=== PATIENT | female | born 1960 | race Caucasian/White ===

== ENCOUNTER 2020-01-25 18:37 | Emergency (ER) | payer BC, OTHER ==
--- NOTE | 2020-01-25 18:53 | PDOC ---
Rapid Medical Evaluation Chief Complaint: Edema Time Seen by Provider: 01/25/20 18:47 Medical Evaluation: Allergies Allergy/AdvReac Type Severity Reaction Status Date / Time No Known Allergies Allergy Verified 01/25/20 18:45 01/25/20 18:47 I have performed a brief in-person evaluation of this patient. The patient presents with a chief complaint of: persistent left lower leg swelling and redness around ankle x 4 months. pt is being treated in vein clinic for varicose veins and having treatment for the veins in vein clinic in the [place]. pt report she has seen vein doctor multiple times for complains and placed on 2 different Abx twice without improvement. pt report seeing vein doctor today and was told by the provider he doesn't know why left is has persistent swelling despite tx and duplex done last week showed no DVT. pt came here for second opinion to dx leg swelling with redness. Denies SOB Pertinent physical exam findings: 3+ pitting edema to left LE from ankle down to foot. diffused circumferential erythema to above left ankle. no open wounds I have ordered the following: CBC, PT/PTT The patient will proceed to the ED for further evaluation. Discharge Disposition - Diagnosis Edema of left lower leg due to peripheral venous insufficiency - Discharge Dispostion Condition at time of disposition: Stable - Referrals - Patient Instructions - Post Discharge Activity
[2020-01-25 18:55] VITALS: BP 129/70; PULSE 90; TEMP 98.8; BMI 25.8
--- NOTE | 2020-01-25 19:52 | PDOC ---
History of Present Illness - General Chief Complaint: Edema Stated Complaint: L/LEG SWELLING/PAIN Time Seen by Provider: 01/25/20 18:47 History Source: Patient Exam Limitations: No Limitations - History of Present Illness Initial Comments: 01/25/20 19:29 HISTORY OF PRESENT ILLNESS: 59-year-old woman with past medical history of varicose veins currently undergoing sclerotherapy presents emergency department for evaluation of left lower extremity swelling and pain worsening over the past week. Patient was seen and evaluated by her primary doctor and was started on an antibiotic. Patient does not remember the name of the antibiotic. Patient reports symptoms have not improved since the initiation of antibiotic therapy. Patient reports he had a negative ultrasound done at an outpatient clinic a week ago. No recent travel or sick contacts. PAST MEDICAL HISTORY: See HPI SURGICAL HISTORY: Denies ALLERGIES: No known drug allergies REVIEW OF SYSTEMS General/Constitutional: Denies fever or chills. Denies weakness, weight change. HEENT: Denies change in vision. Denies ear pain or discharge. Denies sore throat. Cardiovascular: Denies chest pain or shortness of breath. Respiratory: Denies cough, wheezing, or hemoptysis. Gastrointestinal: Denies nausea, vomiting, diarrhea or constipation. Denies rectal bleeding. Genitourinary: Denies dysuria, frequency, or change in urination. Musculoskeletal: See HPI Skin and breasts: Denies rash or easy bruising. Neurologic: Denies headache, vertigo, loss of consciousness, or loss of sensation. Psychiatric: Denies depression or anxiety. Endocrine: Denies increased thirst. Denies abnormal weight change. Hematologic/Lymphatic: Denies anemia, easy bleeding, or history of blood clots. Allergic/Immunologic: Denies hives or skin allergy. Denies latex allergy. PHYSICAL EXAM General Appearance: Well-appearing, appropriately dressed. No apparent distress, no intoxication. Vascular Pulses: Dorsalis-Pedis (R): 2+, Dorsalis-Pedis (L): 2+ Musculoskeletal/Extremities: Normal inspection. FROM of all extremities, normal capillary refill. Pelvis Stable. No CVA tenderness. No tenderness to extremities, pedal edema, swelling, erythema or deformity. Circumferential erythema present to the left lower leg immediately proximal to the ankle. Pitting edema noted. Not warm to the touch. Hair is missing. Appearance consistent with venous stasis changes. Neurovascularly intact. Integumentary: Circumferential erythema present to the left lower leg immediately proximal to the ankle. Pitting edema noted. Not warm to the touch. Hair is missing. Appearance consistent with venous stasis changes. Past History - Medical History Allergies/Adverse Reactions: Allergies Allergy/AdvReac Type Severity Reaction Status Date / Time No Known Allergies Allergy Verified 01/25/20 18:45 Home Medications: Ambulatory Orders Clindamycin [Cleocin -] 450 mg PO Q8H #90 capsule 01/25/20 Mometasone Furoate 45 gm TP BID #1 tube 01/25/20 - Psycho-Social/Smoking History Smoking History: Never smoked - Substance Abuse Hx (Audit-C & DAST Scrn) How often the patient has a drink containing alcohol: Never Score: In Men: 4 or > Positive; In Women: 3 or > Positive: 0 Screen Result (Pos requires Nsg. Audit-10AR): Negative In the last yr the pt used illegal drug/Rx for NonMed reason: No Score: Yes response is considered Positive: 0 Screen Result (Positive result requires Nsg. DAST-10): Negative *Physical Exam - Vital Signs Last Vital Signs Temp Pulse Resp BP Pulse Ox 98.8 F 90 17 129/70 99 01/25/20 18:45 01/25/20 18:45 01/25/20 18:45 01/25/20 18:45 01/25/20 18:45 ED Treatment Course - LABORATORY CBC & Chemistry Diagram: 01/25/20 19:40 - RADIOLOGY Radiology Studies Ordered: Category Date Time Status DUPLEX VASCUL US-1 LEG [US] Stat Ultrasound 01/25/20 19:24 Ordered Medical Decision Making - Medical Decision Making 01/25/20 19:52 A/P: 59-year-old woman with pitting edema to left lower extremity for 1 week. Circumferential erythema with pitting edema present to the distal lower leg of the left side. Duplex Doppler of the left lower extremity Labs [facility] Reassess 01/25/20 21:35 Laboratory Tests 01/25/20 01/25/20 19:40 19:40 WBC 5.9 RBC 4.15 Hgb 11.9 Hct 35.8 MCV 86.2 MCH 28.7 MCHC 33.3 RDW 12.8 Plt Count 254 MPV 8.5 Absolute Neuts (auto) 3.6 Neutrophils % 60.7 Lymphocytes % 28.7 Monocytes % 7.9 Eosinophils % 2.1 Basophils % 0.6 Nucleated RBC % 0 PT with INR 11.90 INR 1.01 PTT (Actin FS) 27.8 Ultrasound is read by Dr. Conn: There is no evidence of deep vein thrombosis in the left lower extremity. No Schaefer's cyst is identified within the popliteal fossa. We will believe there is low likelihood of infectious etiology I will treat with clindamycin 450 mg 3 times daily for the next 10 days. Mometasone ointment to lower extremity twice a day. PMD follow-up I discussed the physical exam findings, ancillary test results and final diagnoses with the patient. I answered all of the patient's questions. The patient was satisfied with the care received and felt comfortable with the discharge plan and treatment plan. The patient will call their primary care physician within 24 hours to arrange follow-up and will return to the Emergency Department with any new, persistent or worsening symptoms. Portions of this note have been documented using voice recognition software. As a result, errors may occur in the project landscape architect process. Effort has been made to correct all grammatical and project landscape architect error, but some may have been missed which may produce sporadic inaccurate project landscape architect or nonsensical phrases. Discharge - Discharge Information Problems reviewed: Yes Clinical Impression/Diagnosis: Edema of left lower leg due to peripheral venous insufficiency Condition: Stable Disposition: HOME - Admission No - Additional Discharge Information Prescriptions: Clindamycin [Cleocin -] 450 mg PO Q8H #90 capsule Mometasone Furoate 45 gm TP BID #1 tube - Follow up/Referral - Patient Discharge Instructions Additional Instructions: Take clindamycin 450 mg 3 times a day for the next 7 days Finish all antibiotics even if you feel better. Apply mometasone to your legs twice a day. Return to emergency department for any worsening pain, drainage or any other concerns. Thank you very much for choosing us to provide your emergent health care needs. - Post Discharge Activity
--- NOTE | 2020-01-25 20:02 | PDOC ---
*Physical Exam - Vital Signs Last Vital Signs Temp Pulse Resp BP Pulse Ox 98.8 F 90 17 129/70 99 01/25/20 18:45 01/25/20 18:45 01/25/20 18:45 01/25/20 18:45 01/25/20 18:45 ED Treatment Course - LABORATORY CBC & Chemistry Diagram: 01/25/20 19:40 Medical Decision Making - Medical Decision Making 01/25/20 20:01 Patient seen by the advanced practice provider under my supervision. Ancillary testing reviewed as necessary. I agree with plan as outlined by the advanced practice provider. Discharge - Discharge Information Problems reviewed: Yes Clinical Impression/Diagnosis: Edema of left lower leg due to peripheral venous insufficiency Condition: Stable Disposition: HOME - Additional Discharge Information Prescriptions: Clindamycin [Cleocin -] 450 mg PO Q8H #90 capsule Mometasone Furoate 45 gm TP BID #1 tube - Follow up/Referral - Patient Discharge Instructions Additional Instructions: Take clindamycin 450 mg 3 times a day for the next 7 days Finish all antibiotics even if you feel better. Apply mometasone to your legs twice a day. Return to emergency department for any worsening pain, drainage or any other con cerns. Thank you very much for choosing us to provide your emergent health care needs. - Post Discharge Activity
[2020-01-25 20:26] LABS: INR 1.01 (0.83-1.09); PROTHROMBIN TIME (PATIENT) 11.9 SEC (9.7-13.0)
[2020-01-25 20:28] LABS: ACTIVATED PTT 27.8 SECONDS (25.2-36.5)
[2020-01-25 20:30] LABS: BASO % 0.6 % (0-2.0); EOS % 2.1 % (0-4.5); HEMATOCRIT 35.8 % (32.4-45.2); HEMOGLOBIN 11.9 GM/dL (10.7-15.3); LYMPH % 28.7 % (8-40); MCH 28.7 pg (25.7-33.7); MCHC 33.3 g/dl (32.0-36.0); MEAN CELL VOLUME 86.2 fl (80-96); MEAN PLT VOLUME 8.5 fl (7.5-11.1); MONO % 7.9 % (3.8-10.2); NEUT % 60.7 % (42.8-82.8); PLATELET COUNT 254 K/MM3 (134-434); RBC 4.15 M/mm3 (3.60-5.2); RDW 12.8 % (11.6-15.6); WHITE BLOOD COUNT 5.9 K/mm3 (4.0-10.0)
== END 2020-01-25 21:45 | disposition home or self-care (01) ==
LOC: JER 18:37
DX: I87.2 Venous insufficiency (chronic) (peripheral) (principal); R22.42 Localized swelling, mass and lump, left lower limb
CPT/HCPCS: 36415; 85025; 85610; 85730; 93971-TC; 99284-25

== ENCOUNTER 2020-07-11 14:46 | Emergency (ER) | payer BC, OTHER ==
[2020-07-11 15:07] VITALS: BP 130/86; PULSE 68; TEMP 97.1; BMI 26.6
[2020-07-11 17:05] LABS: BASO % 0.5 % (0-2.0); EOS % 1.1 % (0-4.5); HEMATOCRIT 41.1 % (32.4-45.2); HEMOGLOBIN 14.2 GM/dL (10.7-15.3); LYMPH % 31.4 % (8-40); MCH 29.8 pg (25.7-33.7); MCHC 34.4 g/dl (32.0-36.0); MEAN CELL VOLUME 86.5 fl (80-96); MEAN PLT VOLUME 7.9 fl (7.5-11.1); MONO % 6.5 % (3.8-10.2); NEUT % 60.5 % (42.8-82.8); PLATELET COUNT 261 K/MM3 (134-434); RBC 4.75 M/mm3 (3.60-5.2); RDW 12.8 % (11.6-15.6); WHITE BLOOD COUNT 6.5 K/mm3 (4.0-10.0)
[2020-07-11] MEDS ORDERED: ALPRAZolam 0.25 MG TABLET PO ONE (17:07)
[2020-07-11] MEDS ORDERED: ALPRAZolam 0.25 MG TABLET ONE (17:09)
[2020-07-11 17:11] LABS: INR 1.29 (0.83-1.09); PROTHROMBIN TIME (PATIENT) 15.5 SEC (9.7-13.0)
[2020-07-11 17:14] LABS: CHLORIDE 105 mmol/L (98-107); POTASSIUM 4.2 mmol/L (3.5-5.1); SODIUM 141 mmol/L (136-145)
[2020-07-11 17:16] LABS: CALCIUM 9.4 mg/dL (8.5-10.1)
[2020-07-11 17:17] LABS: ALBUMIN 4.3 g/dl (3.4-5.0); ANION GAP 6 MMOL/L (8-16); BLOOD UREA NITROGEN 11.3 mg/dL (7-18); CO2 30 mmol/L (21-32); GLUCOSE,RANDOM 98 mg/dL (74-106)
[2020-07-11 17:20] LABS: CREATININE 0.8 mg/dL (0.55-1.3); SGOT/AST 23 U/L (15-37); SGPT/ALT 30 U/L (13-61)
[2020-07-11 17:21] LABS: BILIRUBIN,TOTAL 0.2 mg/dL (0.2-1)
[2020-07-11 17:23] LABS: ALK PHOS 101 U/L (45-117)
== END 2020-07-11 18:20 | disposition home or self-care (01) ==
LOC: JER 14:46
DX: M79.602 Pain in left arm (principal); M48.02 Spinal stenosis, cervical region; R07.9 Chest pain, unspecified
CPT/HCPCS: 36415; 70450-TC; 71046-TC-FY; 72125-TC; 80053; 82550; 84484; 85025; 85610; 93005; 93010; 99285-25